=== PATIENT | male | born 1960 | race Two or more races ===

== ENCOUNTER 2017-01-20 10:45 | Outpatient (CLI) | payer MEDICAID | END 2017-01-20 10:46 | disposition home or self-care (01) | DX: M47.896 Other spondylosis, lumbar region (principal); M47.897 Other spondylosis, lumbosacral region ==

== ENCOUNTER 2017-02-24 16:36 | Outpatient (CLI) | payer MEDICAID ==
[2017-02-25 12:07] LABS: BASOPHILS % (AUTO) 0.6 %; EOSINOPHILS # (AUTO) 0.2 10^3/uL (0.0-0.7); EOSINOPHILS % (AUTO) 3.6 %; HCT - HEMATOCRIT 41.7 % (42.0-52.0); HGB - HEMOGLOBIN 14.3 g/dL (14.0-18.0); LYMPHOCYTES % (AUTO) 31.5 %; MEAN CORPUSCULAR HEMOGLOBIN 32.6 pg (27.0-31.0); MEAN CORPUSCULAR HGB CONC 34.3 g/dL (32.0-36.0); MEAN PLATELET VOLUME 8.5 fL (7.4-11.4); MONOCYTES # (AUTO) 0.6 10^3/uL (0.0-1.0); MONOCYTES % (AUTO) 8.6 %; NEUTROPHILS # (AUTO) 3.6 10^3/uL (1.5-6.6); NEUTROPHILS % (AUTO) 55.7 %; NUCLEATED RED BLOOD CELLS AUTO 0.1 /100WBC; RED BLOOD COUNT 4.39 10^6/uL (4.70-6.10); RED CELL DISTRIBUTION WIDTH 14.2 % (12.0-15.0); UNCORRECTED WHITE BLOOD COUNT 6.4 x10^3/uL; WHITE BLOOD COUNT 6.4 x10^3/uL (4.8-10.8)
[2017-02-25 12:32] LABS: URIC ACID 7.5 mg/dL (2.6-7.2)
[2017-02-27 19:19] LABS: ANA SCREEN POSITIVE (NEGATIVE)
[2017-02-28 19:32] LABS: ANA TITER 1:40 titer (())
== END 2017-02-24 16:37 | disposition home or self-care (01) ==
LOC: LAB.S 16:36
PROVIDERS: ATTEND Nurse Practitioner Family
DX: M25.50 Pain in unspecified joint (principal)
CPT/HCPCS: 36415; 84550; 85025; 85651; 86038; 86140; 86200; 86430

== ENCOUNTER 2017-04-23 22:42 | Emergency (ER) | payer MEDICAID ==
[2017-04-23] MEDS ORDERED: SODIUM CHLORIDE FLUSH 0.9% 10 ML SYRINGE IVP ONE (22:57)
[2017-04-23] MEDS ORDERED: SODIUM CHLORIDE 0.9% 1,000 ML IV ONE (23:00)
[2017-04-23] MEDS ORDERED: ONDANSETRON 4 MG/2 ML VIAL IVP STA (23:00)
[2017-04-23 23:09] LABS: BASOPHILS % (AUTO) 0.6 %; EOSINOPHILS # (AUTO) 0.1 10^3/uL (0.0-0.7); EOSINOPHILS % (AUTO) 0.8 %; HCT - HEMATOCRIT 41.3 % (42.0-52.0); HGB - HEMOGLOBIN 14.6 g/dL (14.0-18.0); LYMPHOCYTES # (AUTO) 1.8 10^3/uL (1.5-3.5); LYMPHOCYTES % (AUTO) 22.6 %; MEAN CORPUSCULAR HEMOGLOBIN 32.3 pg (27.0-31.0); MEAN CORPUSCULAR HGB CONC 35.4 g/dL (32.0-36.0); MEAN CORPUSCULAR VOLUME 91.4 fL (80.0-94.0); MEAN PLATELET VOLUME 7.6 fL (7.4-11.4); MONOCYTES # (AUTO) 0.5 10^3/uL (0.0-1.0); MONOCYTES % (AUTO) 6.1 %; NEUTROPHILS # (AUTO) 5.5 10^3/uL (1.5-6.6); NEUTROPHILS % (AUTO) 69.9 %; RED BLOOD COUNT 4.52 10^6/uL (4.70-6.10); RED CELL DISTRIBUTION WIDTH 13.4 % (12.0-15.0); UNCORRECTED WHITE BLOOD COUNT 7.9 x10^3/uL; WHITE BLOOD COUNT 7.9 x10^3/uL (4.8-10.8)
[2017-04-23] MEDS ORDERED: ONDANSETRON 4 MG/2 ML VIAL ONE (23:09)
[2017-04-23 23:20] LABS: BILIRUBIN,URINE NEGATIVE (NEGATIVE)
[2017-04-23 23:23] LABS: ALBUMIN/GLOBULIN RATIO 1.6 (1.0-2.2); BILIRUBIN,TOTAL 0.8 mg/dL (0.2-1.0); CALCIUM 9.1 mg/dL (8.5-10.3); CREATININE 0.9 mg/dL (0.6-1.2); TOTAL PROTEIN 7.8 g/dL (6.7-8.2)
[2017-04-23 23:28] LABS: UA CHARGE (STRIP ONLY) YES; UR CULTURE IF IND NOT INDICATED
[2017-04-24] MEDS ORDERED: FAMOTIDINE 20 MG/2 ML VIAL IVP STA (00:30)
[2017-04-24] MEDS ORDERED: FAMOTIDINE 20 MG/2 ML VIAL ONE (00:38)
--- NOTE | 2017-04-24 02:03 | ED Physician Documentation ---
History of Present Illness - Stated complaint Stated Complaint: VOMITING - Chief complaint Chief Complaint: Abd Pain - Additonal information Additional information: 57-year-old male who is otherwise healthy presents with an episode of vomiting today and epigastric abdominal pain. He had 3 episodes this afternoon. About a month ago he had another similar episode that was much less severe. He denies any abdominal pain at this time and is not nauseous. He did vomit up a small amount of reddish material however he did drink red wine shortly prior to the episode tonight. He does not have any history of any gastrointestinal diseases. He has not had any constipation diarrhea or fever. He has had a couple episodes of reflux of acid in his esophagus over the last several months which is new for him. He is not a regular user of nonsteroidal anti- inflammatories. Review of systems: For pertinent positive and negatives in the review of systems please see the history of present illness, otherwise all other systems have been reviewed and are negative. Dragon disclaimer: Parts of this medical record were created using voice recognition technology. Because of the inherent limitations of this system, occasional same sounding word substitutions do occur and persist despite proofreading. Please read the document for context. Review of Systems Constitutional: denies: Fever, Myalgias GI: reports: Abdominal Pain, Nausea, Vomiting, Hematemesis. denies: Bloody / black stool PD PAST MEDICAL HISTORY - Present Medications Home Medications: Ambulatory Orders Medication Instructions Recorded Confirmed Omeprazole [PriLOSEC] 20 mg PO BID #28 capsule 04/24/17 Ondansetron Odt [Zofran] 4 mg TL Q6H PRN #14 tablet 04/24/17 - Allergies Allergies/Adverse Reactions: Allergies Allergy/AdvReac Type Severity Reaction Status Date / Time No Known Drug Allergies Allergy Verified 04/23/17 22:45 PD ED PE NORMAL - Vitals Vital signs reviewed: Yes - General General: Alert and oriented X 3, No acute distress, Well developed/nourished - HEENT HEENT: Atraumatic, Pharynx benign, Dentition benign - Neck Neck: Supple, no meningeal sign, No bruit - Cardiac Cardiac: No murmur - Respiratory Respiratory: No respiratory distress, Clear bilaterally - Abdomen Abdomen: Normal bowel sounds, Non tender, Non distended, Other (Benign abdominal examination even deep palpation in the epigastrium.) - Rectal Rectal: Other (Brown stool strongly guaiac positive) - Extremities Extremities: No deformity, No tenderness to palpate, Normal ROM s pain, No edema - Neuro Neuro: Alert and oriented X 3, No motor deficit - Psych Psych: Normal mood Results - Vitals Vitals: Vital Signs - 24 hr 04/23/17 04/23/17 22:45 23:43 Temperature 36.5 C 36.9 C Heart Rate 109 H 93 Respiratory 18 15 Rate Blood Pressure 135/89 H 135/75 H O2 Saturation 97 96 Oxygen O2 Source Room air - Labs Labs: Laboratory Tests 04/23/17 04/23/17 04/23/17 22:55 22:55 23:00 WBC 7.9 RBC 4.52 L Hgb 14.6 Hct 41.3 L MCV 91.4 MCH 32.3 H MCHC 35.4 RDW 13.4 Plt Count 238 MPV 7.6 Neut # 5.5 Lymph # 1.8 [place] # 0.5 Eos # 0.1 Baso # 0.0 Absolute Nucleated RBC 0.00 Nucleated RBCs 0.0 Sodium 139 Potassium 4.0 Chloride 103 Carbon Dioxide 26 Anion Gap 10.0 BUN 14 Creatinine 0.9 Estimated GFR (MDRD) 88 L Glucose 154 H Calcium 9.1 Total Bilirubin 0.8 AST 37 ALT 66 H Alkaline Phosphatase 52 Total Protein 7.8 Albumin 4.8 Globulin 3.0 Albumin/Globulin Ratio 1.6 Lipase 30 Urine Color YELLOW Urine Clarity CLEAR Urine pH 5.0 Ur Specific [place] >=1.030 H Urine Protein NEGATIVE Urine Glucose (UA) NEGATIVE Urine Ketones NEGATIVE Urine Occult Blood NEGATIVE Urine Nitrite NEGATIVE Urine Bilirubin NEGATIVE Urine Urobilinogen 0.2 (NORMAL) Ur Leukocyte Esterase NEGATIVE Ur Microscopic Review NOT INDICATED Urine Culture Comments NOT INDICATED PD MEDICAL DECISION MAKING - ED course Complexity details: reviewed old records, reviewed results, re-evaluated patient , considered differential ED course: Pleasant healthy 57-year-old male with episode of nausea vomiting tonight and possibly hematemesis versus regurgitation of red wine. On examination he has a soft nontender abdomen and looks well. He is given IV fluids IV Pepcid and a small amount of Zofran here and looks great. Repeat abdominal examinations are unremarkable. Rectal exam however showed brown stool that was strongly guaiac positive. Given his symptoms I suspect he may have a mild upper gastrointestinal bleed. The patient looks well I think this can be managed on an outpatient basis. I will place him on omeprazole 20 mg twice daily, Zofran as needed and he will follow-up with his health provider. If he fails to improve or gets worse he may need endoscopy. I have asked him to avoid wind and nonsteroidal anti-inflammatories until better. Disposition: To home Clinical impression: 1. Possible hematemesis versus regurgitation of wine 2. Probable gastritis with brown but guaiac positive stool Departure - Departure Disposition: Home, Self Care Clinical Impression: Gastritis and duodenitis Condition: Good Instructions: ED PUD Vs Gastritis Follow-Up: Raquel Tineo ARNP [Primary Care Provider] - Prescriptions: Omeprazole [PriLOSEC] 20 mg PO BID #28 capsule Ondansetron Odt [Zofran] 4 mg TL Q6H PRN #14 tablet PRN Reason: Nausea / Vomiting
[2017-04-24 02:10] VITALS: BP 128/74
== END 2017-04-24 02:11 | disposition home or self-care (01) ==
LOC: ED 22:42
DX: K29.70 Gastritis, unspecified, without bleeding (principal); K29.80 Duodenitis without bleeding
CPT/HCPCS: 36415; 80053; 81001; 81003; 83690; 85025; 87086; 96374; 96375; 99283; 99284

== ENCOUNTER 2017-05-09 12:05 | Outpatient (CLI) | payer MEDICAID ==
--- NOTE | 2017-05-09 15:18 | XRAY Report ---
TWO VIEW CHEST: 05/09/2017 CLINICAL INDICATION: Shortness of breath. FINDINGS: Frontal and lateral views of the chest are compared to previous films of 10/03/2014. The cardiac silhouette is within normal limits. The lungs are clear. No effusion or pneumothorax is p resent. IMPRESSION: NORMAL CHEST, UNCHANGED. JOB #: [id number] EXT JOB #:[id number]
== END 2017-05-09 12:06 | disposition home or self-care (01) ==
LOC: DI.S 12:05
PROVIDERS: ATTEND Surgery
DX: R06.02 Shortness of breath (principal)
CPT/HCPCS: 71020

== ENCOUNTER 2017-05-15 09:04 | Day surgery (SDC) | payer MEDICAID ==
[2017-05-15] MEDS ORDERED: LACTATED RINGERS 1,000 ML IV ONE (09:50)
[2017-05-15] MEDS ORDERED: BENZOCAINE/TETRACAINE/BUTAMBEN SPRAY 56 GM TOP ONE (10:34)
[2017-05-15] MEDS ORDERED: fentaNYL 100 MCG/2 ML VIAL IVP ONE (10:59)
[2017-05-15] MEDS ORDERED: MIDAZOLAM 2 MG/2 ML VIAL IVP ONE (10:59)
[2017-05-15 11:10] VITALS: BP 110/71
== END 2017-05-15 09:05 | disposition home or self-care (01) ==
LOC: SDS 09:04
PROVIDERS: ATTEND Surgery
PROC: 0DB98ZX Excision of Duodenum, Via Natural or Artificial Opening Endoscopic, Diagnostic (ICD-10-PCS; principal; 2017-05-15 10:30)
PROC: 0DBN8ZX Excision of Sigmoid Colon, Via Natural or Artificial Opening Endoscopic, Diagnostic (ICD-10-PCS; 2017-05-15 10:30)
DX: K29.80 Duodenitis without bleeding (principal); K44.9 Diaphragmatic hernia without obstruction or gangrene; K29.70 Gastritis, unspecified, without bleeding; D12.5 Benign neoplasm of sigmoid colon
CPT/HCPCS: 43239; 45380; A9270; J7120

== ENCOUNTER 2017-06-30 13:43 | Outpatient (CLI) | payer MEDICAID ==
--- NOTE | 2017-07-01 14:48 | MRI Report ---
MRI LUMBAR SPINE WITHOUT CONTRAST INDICATION: 57-year-old male with chronic low back pain with intermittent pain to bilateral legs. Ple ase assess. COMPARISON: None. TECHNIQUE: 1. Sagittal STIR, T1 and T2. 2. Axial T1 and T2. FINDINGS: Radiographs (01/20/2017) have been reviewed, confirming the presence of 5 [id number], lumbar-typ e vertebrae. The last fully articulated level has been labeled L5. Noted is a small S1-S2 disk. There is very mild (grade 1) anterolisthesis of L4 on L5, measuring about 3 mm. No evidence of L4 spo ndylolysis. The anterolisthesis appears to be secondary to degenerative facet arthrosis. There is min imal retrolisthesis of L5 on S1. Alignment is otherwise unremarkable. Degenerative changes are demonstrated in the disks at all levels from L3-L4 to L5-S1. There is slight loss of normal T2 signal from the L1-L2 and L2-L3 disks suggesting early degenerative change. There is minimal disk space narrowing at L4-L5. Moderate to severe disk space narrowing is seen at L5-S1. T he disk space heights are otherwise preserved. There is marrow edema in the right pedicles of L4 and L5, probably representing reactive change secon arpita to underlying right L4-L5 degenerative facet arthrosis. However, there does appear to be some ST IR hyperintensity in the soft tissues surrounding the right L4-L5 facet joint. This makes it difficul t to exclude infection. Marrow signal intensity is otherwise unremarkable. There is lipomatous change in the distal filum. However, the conus terminates at an appropriate fashi on at above the L1-L2 disk level and there is no apparent abnormal thickening of the filum. Therefore , the possibility of spinal cord tethering is considered very unlikely. Axial images: L2-L3: Tiny left intra-/extraforaminal protrusion. Minimal foraminal narrowing. No spinal stenosis. L3-L4: Broad-based intra-/extraforaminal protrusions bilaterally. No spinal stenosis. Very mild nandini inal narrowing. L4-L5: Anterolisthesis with associated uncovering of the disk. No focal protrusion or extrusion is id entified. Degenerative facet arthrosis with mild to moderate bony hypertrophy. No significant central or subarticular zone spinal stenosis. Mild to moderate foraminal narrowing. L5-S1: Retrolisthesis. Circumferential disk bulge. Small, broad-based, right paracentral extrusion pr ojecting posteriorly into the spinal canal for about 4.5 mm. Broad-based intra-/extraforaminal protru sions bilaterally. There appears to be very early degenerative facet arthrosis. No significant bony h ypertrophy. No spinal stenosis. Moderate left and moderate right foraminal stenoses. On the right, in traforaminal extrusion contacts the undersurface of the exiting L5 nerve root in the foramen. The per ineural fat is partially effaced. No compression of the nerve root is demonstrated. IMPRESSION: 1. Grade I degenerative anterolisthesis of L4 on L5. 2. Degenerative disk and facet change is demonstrated in the mid and lower lumbar spine as documented above. No high-grade spinal canal or foraminal stenosis is demonstrated. No evidence of neural impin gement. 3. At L5-S1, right-sided intraforaminal extrusion contacts the undersurface of the exiting right L5 n erve root in the neural foramen. The perineural fat is partially effaced. This is a potential cause f or right L5 nerve root irritation. Recommend clinical correlation for possible right L5 radiculitis. 4. Of note, there is minor lipomatous change in the distal filum. However, the conus terminates in ap propriate fashion at the L1-L2 disk level. The possibility of spinal cord tethering is considered ext remely unlikely. 5. Marrow signal abnormality in the right pedicles of L4 and L5 probably represents reactive marrow e aidan secondary to right L4-L5 degenerative facet arthrosis. However, there does appear to be some STI R hyperintensity in the adjacent soft tissues. This makes it difficult to exclude infection at the doctors hospital L4-L5 facet joint. Clinical correlation is advised. In particular, is there any elevation of the WBC, CRP or ESR to suggest the possibility of infection? If yes, further workup for possible right L 4-L5 facet septic arthritis would be warranted. Referring Provider Line: [phone] SITE ID: [id number]
== END 2017-06-30 13:44 | disposition home or self-care (01) ==
LOC: DI 13:43
PROVIDERS: ATTEND Physical Medicine & Rehabilitation
DX: M51.26 Other intervertebral disc displacement, lumbar region (principal); M51.36 Other intervertebral disc degeneration, lumbar region; M47.896 Other spondylosis, lumbar region; M51.27 Other intervertebral disc displacement, lumbosacral region; M43.16 Spondylolisthesis, lumbar region
CPT/HCPCS: 72148